=== PATIENT | female | born 1970 | race Caucasian/White ===

== ENCOUNTER 2020-09-21 22:30 | Emergency (ER) | payer BC ==
[~2020-09-21] VITALS: Ht 172.7 cm; Wt 106.6 kg
[2020-09-21 22:34] VITALS: Ht 172.7 cm; Wt 106.6 kg
[2020-09-21 23:45] LABS: BASOPHIL % 0.3 % (0-2); RED CELL DISTRIBUTION WIDTH 12.6 % (11.5-14.5)
[2020-09-21 23:48] LABS: PLATELET COUNT 26 x10^3mcL (130-400)
[2020-09-21 23:50] LABS: microscopic required? NO
[2020-09-21 23:51] LABS: CALCIUM 8.9 mg/dL (8.5-10.1); CARBON DIOXIDE 26.1 mmol/L (21-32); CREATININE SERUM 1.7 mg/dL (0.6-1.0); POTASSIUM SERUM 3.3 mmol/L (3.5-5.1)
[2020-09-21 23:55] LABS: BILIRUBIN TOTAL 0.4 mg/dL (0.20-1.00); TOTAL PROTEIN, SERUM 7.1 g/dL (6.4-8.2)
[2020-09-22 00:06] LABS: UA SPECIFIC GRAVITY <=1.005 (1.005-1.035); urine erythrocyte NEGATIVE (NEGATIVE)
[2020-09-22 00:07] LABS: FREE T4 1.4 ng/dL (0.76-1.46); T4(THYROXINE) 13.1 ug/dL (4.7-13.3)
[2020-09-22 00:15] LABS: T3 TOTAL 1.67 ng/mL
[2020-09-22 00:55] VITALS: BP 150/91
== END 2020-09-22 00:55 | disposition home or self-care (01) ==
LOC: ED 22:30
PROVIDERS: Emergency Medicine
DX: F41.9 Anxiety disorder, unspecified (principal); I10 Essential (primary) hypertension; M06.9 Rheumatoid arthritis, unspecified; E03.9 Hypothyroidism, unspecified; Z88.1 Allergy status to other antibiotic agents
CPT/HCPCS: 84439; J7030